=== PATIENT | male | born 1975 | race Hispanic/Latino ===

== ENCOUNTER 2021-02-24 08:22 | Outpatient (CLI) | payer OTHER | END 2021-02-24 08:23 | disposition home or self-care (01) | LOC: BICRAD 08:22 → BICULT 08:23 | PROVIDERS: ATTEND Urology | DX: R31.29 Other microscopic hematuria (principal) | CPT/HCPCS: 76770 ==

== ENCOUNTER 2023-06-09 15:12 | Outpatient (CLI) | payer BC | END 2023-06-09 15:13 | disposition home or self-care (01) | LOC: BICRAD 15:12 | PROVIDERS: ATTEND Nurse Practitioner Family | DX: M25.511 Pain in right shoulder (principal) ==